=== PATIENT | female | born 1990 | race Caucasian/White ===

== ENCOUNTER 2018-05-06 22:56 | Emergency (ER) | payer BC ==
[~2018-05-06] VITALS: Ht 162.6 cm; Wt 70.8 kg
[2018-05-06 22:58] VITALS: TEMP 36.4; Ht 162.6 cm; Wt 70.8 kg
[2018-05-06] MEDS ORDERED: LIDOCAINE 1% BUFFERED INJ 20 ML VIAL INFIL ONE (23:15)
[2018-05-06] MEDS ORDERED: AMOX875T PO (23:22)
--- NOTE | 2018-05-06 23:25 | EMERGENCY ROOM VISIT NOTE ---
History Report prepared by Omk[facility]: [facility] Under the Supervision of: Dr. Shiloh Quintero D.O. First contact with patient: 23:03 Chief Complaint: BITE Stated Complaint: DOG BITE ON FACE History of Present Illness The patient is a 27 year old female who presents to the Emergency Room with complaints of multiple left-sided facial abrasions and lacerations that began an hour ago after being bitten by a Sinhala Kuhn. Patient states she was sitting in a chair petting the dog's head when the dog then bit her after "acting out" and barking. Patient denies any facial pain. Patient states the dog was her friend's boyfriend's. She adds the dog is up-to-date on their immunizations. Patient states her last tetanus shot was in 2009. Patient denies any past medical history. 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 Patient adds she has had "at least 5 drinks" in the past couple hours. Source of History: patient Onset: An hour ago Position: head Timing: constant Modifying Factors (Relieving): other (None) Note: Denies facial pain. Review of Systems Patient has been drinking alcohol and denies any other injuries. Past Medical & Surgical No pertinent past medical & surgical history. Family History No pertinent family history. Social History Smoking Status: Never Smoker Alcohol Use: occasionally Occupation Status: employed Current/Historical Medications Scheduled Amoxicillin & Pot Clavulanate (Augmentin 875-125 mg), 875 MG PO BID Allergies Coded Allergies: No Known Allergies (Unverified , 05/06/18) Physical Exam Vital Signs Date Time Temp Pulse Resp B/P (MAP) Pulse Ox O2 Delivery O2 Flow Rate FiO2 05/07/18 00:50 73 16 119/68 100 Room Air 05/06/18 22:58 36.4 77 16 133/81 99 Room Air Physical Exam FACE: Superficial abrasions to lateral aspect of left eye, six 1cm lacerations to the left chin, edema over the left zygoma and left mandibular jaw line. Medical Decision & Procedures Medications Administered Medications (Trade) Dose Ordered Sig/Anne-Marie Route Start Time Stop Time Status Last Admin Dose Admin Amoxicillin/ Clavulanate Potassium (Augmentin Tab) 875 mg NOW ONCE PO 05/07/18 00:45 05/07/18 00:46 DC 05/07/18 01:01 875 MG Procedure Augmentin Tab 875mg PO to take at home Lidocaine HCl 20ml INFIL were administered. Location: Chin Total length: 6cm in total Complexity: Moderate Verbal consent was obtained A time out was taken and the correct patient and site identified. The skin was prepped with betadine. The target area was anesthetized with 2 ml of 1% lidocaine without epinephrine. Copious irrigation was performed using sterile water. The skin was re-prepped with betadine and a sterile field set. The wound was explored for foreign bodies and none found. Examination revealed no injury to deep structures such as tendons, bone, or significant blood vessels. Debridement was not performed. The wound edges were approximated using 8, 5-0 simple interrupted nylon sutures. Hemostasis and excellent approximation was achieved. Antibacterial ointment and a sterile dressing applied. Detailed wound care instructions and signs and symptoms of infection reviewed with the her. No complications and the patient tolerated the procedure well. ED Course 2302: Past medical records reviewed. The patient was evaluated in room C3. A complete history and physical exam was performed. 2315: Augmentin Tab 875mg PO 0045: Lidocaine HCl 20ml INFIL. The facial wounds were cleansed and repaired as described above. 0058: Upon reevaluation, the patient is resting comfortably. I discussed findings and results with her. She verbalized agreement of the treatment plan. She was discharged home. Medical Decision The patient is a 27 year old female who presents to the ED with multiple left- sided facial abrasions and lacerations. Differential diagnosis includes dog bite to the face and dog scratches to the face. The patient is up-to-date on her tetanus. The wounds on the face were repaired with a total of 8 interrupted sutures. She was encouraged to watch for signs of infection and to keep the wounds clean and covered with antibiotic ointment. She will take Augmentin twice a day for the next 7 days. She can have the sutures removed in 5 days. Medication Reconcilliation Current Medication List: was personally reviewed by me Blood Pressure Screening Patient's blood pressure: Elevated blood pressure Blood pressure disposition: Elevated BP felt to be situational Impression Primary Impression: Dog bite of face Scribe Attestation The scribe's documentation has been prepared under my direction and personally reviewed by me in its entirety. I confirm that the note above accurately reflects all work, treatment, procedures, and medical decision making performed by me. Departure Information Dispostion Home / Self-Care Prescriptions Amoxicillin & Pot Clavulanate (Augmentin 875-125 mg) 1 Tab Tab 875 MG PO BID, #14 TAB Prov: Shiloh Quintero D.O. 05/06/18 Forms HOME CARE DOCUMENTATION FORM, IMPORTANT VISIT INFORMATION Patient Instructions My [facility] Additional Instructions Rest with your head elevated to minimize swelling. Keep the sutures clean with soap and water. Cover with atibiotic ointment Have sutures removed in 5 days Augmentin - 1 tab. every 12 hours Return to the ER for signs of infection Problem Qualifiers Primary Impression: Dog bite of face Encounter type: initial encounter Qualified Codes: S01.85XA - Open bite of other part of head, initial encounter; W54.0XXA - Bitten by dog, initial encounter
[2018-05-07] MEDS ORDERED: AMOXICILLIN/CLAVULANATE TAB 875 MG TAB PO ONE (00:45)
[2018-05-07 00:50] VITALS: BP 119/68; PULSE 73; O2SAT 100
== END 2018-05-07 00:50 | disposition home or self-care (01) ==
LOC: C.EDB 22:58 → C.EDC 05-07 00:50
DX: S01.85XA Open bite of other part of head, initial encounter (principal); W54.0XXA Bitten by dog, initial encounter